=== PATIENT | male | born 2000 | race Hispanic/Latino ===

== ENCOUNTER 2024-08-13 07:09 | Emergency (ER) | payer SELFPAY ==
[2024-08-13] MEDS ORDERED: Doxycycline 100 MG CAP ONE (07:30)
[2024-08-13] MEDS ORDERED: Ibuprofen 200 MG TAB ONE (07:30)
== END 2024-08-13 07:41 | disposition home or self-care (01) ==
LOC: BURERS 07:09
DX: K05.219 Aggressive periodontitis, localized, unspecified severity (principal)
CPT/HCPCS: 99283